=== PATIENT | female | born 1990 | race Caucasian/White ===

== ENCOUNTER 2017-10-14 15:00 | Outpatient (CLI) | payer OTHER ==
[2017-10-14 17:54] LABS: BASOPHILS % (AUTO) 0.7 %; EOSINOPHILS # (AUTO) 0.1 10^3/uL (0.0-0.7); EOSINOPHILS % (AUTO) 1.5 %; HGB - HEMOGLOBIN 12.5 g/dL (12.0-16.0); LYMPHOCYTES # (AUTO) 1.4 10^3/uL (1.5-3.5); LYMPHOCYTES % (AUTO) 25.3 %; MEAN CORPUSCULAR HEMOGLOBIN 30.6 pg (27.0-31.0); MEAN CORPUSCULAR HGB CONC 34.4 g/dL (32.0-36.0); MEAN PLATELET VOLUME 7.3 fL (7.9-10.8); MONOCYTES # (AUTO) 0.3 10^3/uL (0.0-1.0); MONOCYTES % (AUTO) 5.9 %; NEUTROPHILS # (AUTO) 3.6 10^3/uL (1.5-6.6); NEUTROPHILS % (AUTO) 66.6 %; PLT - PLATELET COUNT 213 10^3/uL (130-450); RED BLOOD COUNT 4.06 10^6/uL (4.20-5.40); RED CELL DISTRIBUTION WIDTH 12.5 % (12.0-15.0); WHITE BLOOD COUNT 5.4 x10^3/uL (4.8-10.8)
[2017-10-14 18:50] LABS: ALBUMIN 4.7 g/dL (3.2-5.5); ALBUMIN/GLOBULIN RATIO 1.5 (1.0-2.2); BILIRUBIN,TOTAL 1.6 mg/dL (0.2-1.0); CALCIUM 8.8 mg/dL (8.5-10.3); CREATININE 0.7 mg/dL (0.4-1.0); TOTAL PROTEIN 7.8 g/dL (6.7-8.2)
== END 2017-10-14 15:01 | disposition home or self-care (01) ==
LOC: LAB.S 15:00
PROVIDERS: ATTEND Nurse Practitioner Family
DX: R63.6 Underweight (principal)
CPT/HCPCS: 36415; 80053; 84443; 85025

== ENCOUNTER 2021-05-31 08:00 | Outpatient (CLI) | payer OTHER | END 2021-05-31 08:01 | disposition home or self-care (01) | LOC: LAB 08:00 | PROVIDERS: ATTEND Nurse Practitioner | DX: R10.9 Unspecified abdominal pain (principal) | CPT/HCPCS: 87086; 87181 ==

== ENCOUNTER 2021-06-21 08:01 | Outpatient (CLI) | payer OTHER ==
[2021-06-21 08:34] LABS: BASOPHILS % (AUTO) 0.6 %; EOSINOPHILS # (AUTO) 0.1 10^3/uL (0.0-0.7); EOSINOPHILS % (AUTO) 2.9 %; HGB - HEMOGLOBIN 12.9 g/dL (12.0-16.0); LYMPHOCYTES # (AUTO) 1.2 10^3/uL (1.5-3.5); LYMPHOCYTES % (AUTO) 33.2 %; MEAN CORPUSCULAR HEMOGLOBIN 30.7 pg (27.0-31.0); MEAN CORPUSCULAR HGB CONC 33.9 g/dL (32.0-36.0); MEAN CORPUSCULAR VOLUME 90.5 fL (81.0-99.0); MEAN PLATELET VOLUME 8.7 fL (7.9-10.8); MONOCYTES # (AUTO) 0.3 10^3/uL (0.0-1.0); MONOCYTES % (AUTO) 9.5 %; NEUTROPHILS # (AUTO) 1.9 10^3/uL (1.5-6.6); NEUTROPHILS % (AUTO) 53.2 %; PLT - PLATELET COUNT 160 10^3/uL (130-450); RED CELL DISTRIBUTION WIDTH 11.4 % (12.0-15.0); WHITE BLOOD COUNT 3.5 x10^3/uL (4.8-10.8)
[2021-06-21 08:40] LABS: BILIRUBIN,URINE NEGATIVE (NEGATIVE); GLUCOSE, URINE (UA) NEGATIVE (NEGATIVE); KETONES,URINE (UA) NEGATIVE (NEGATIVE); LEUKOCYTE ESTERASE, URINE TRACE (NEGATIVE); NITRITE,URINE NEGATIVE (NEGATIVE); OCCULT BLOOD,URINE NEGATIVE (NEGATIVE); PROTEIN,URINE 30 mg/dL (NEGATIVE); UROBILINOGEN,URINE 0.2 (NORMAL) E.U./dL (NORMAL)
[2021-06-21 08:42] LABS: CLARITY,URINE CLEAR (CLEAR)
[2021-06-21 08:55] LABS: ALBUMIN 4.4 g/dL (3.2-5.5); ALBUMIN/GLOBULIN RATIO 1.5 (1.0-2.2); ALKALINE PHOSPHATASE 32 IU/L (42-121); ALT ALANINE AMINOTRANSFERASE 22 IU/L (10-60); AST ASPARTATE AMINOTRANSFERASE 20 IU/L (10-42); BILIRUBIN,TOTAL 1.5 mg/dL (0.2-1.0); BUN - BLOOD UREA NITROGEN 12 mg/dL (6-20); CALCIUM 9.1 mg/dL (8.5-10.3); CARBON DIOXIDE - CO2 26 mmol/L (21-32); CHLORIDE 104 mmol/L (101-111); CHOL/HDL RATIO 2.7 (<4.4); CHOLESTEROL 154 mg/dL; CREATININE 0.8 mg/dL (0.4-1.0); GFR - MDRD 83 (>89); GLUCOSE 96 mg/dL (70-100); HDL CHOLESTEROL 57 mg/dL; LDL CHOLESTEROL,CALCULATED 86 mg/dL; LDL/HDL RATIO 1.5 (<4.4); SODIUM 138 mmol/L (135-145); TOTAL PROTEIN 7.4 g/dL (6.7-8.2); TRIGLYCERIDES 53 mg/dL; VLDL CHOLESTEROL 11 mg/dL
[2021-06-21 08:56] LABS: THYROID STIMULATING HORMONE 1.46 uIU/mL (0.34-5.60)
[2021-06-21 08:57] LABS: BACTERIA,URINE Few /HPF (None Seen); RBC,URINE 0-5 /HPF (0-5); SQUAMOUS EPITHELIAL CELL,UR MOD Squamous (<= Few)
== END 2021-06-21 08:02 | disposition home or self-care (01) ==
LOC: LAB 08:01
PROVIDERS: ATTEND Nurse Practitioner
DX: R53.83 Other fatigue (principal); R30.0 Dysuria
CPT/HCPCS: 36415; 80053; 80061; 81001; 83721; 84443; 85025; 87086

== ENCOUNTER 2021-07-18 07:05 | Outpatient (CLI) | payer OTHER ==
[2021-07-18 12:31] LABS: ALBUMIN 4.5 g/dL (3.2-5.5); BILIRUBIN,DIRECT 0.2 mg/dL (0.1-0.5); BILIRUBIN,TOTAL 2.1 mg/dL (0.2-1.0); TOTAL PROTEIN 7.1 g/dL (6.7-8.2)
[2021-07-18 12:46] LABS: BASOPHILS % (AUTO) 0.6 %; EOSINOPHILS # (AUTO) 0.1 10^3/uL (0.0-0.7); EOSINOPHILS % (AUTO) 2.5 %; HCT - HEMATOCRIT 35.2 % (37.0-47.0); LYMPHOCYTES # (AUTO) 1.1 10^3/uL (1.5-3.5); LYMPHOCYTES % (AUTO) 24.1 %; MEAN CORPUSCULAR HEMOGLOBIN 31.2 pg (27.0-31.0); MEAN CORPUSCULAR HGB CONC 34.1 g/dL (32.0-36.0); MEAN CORPUSCULAR VOLUME 91.4 fL (81.0-99.0); MEAN PLATELET VOLUME 9.1 fL (7.9-10.8); MONOCYTES # (AUTO) 0.4 10^3/uL (0.0-1.0); MONOCYTES % (AUTO) 8.9 %; NEUTROPHILS % (AUTO) 63.7 %; PLT - PLATELET COUNT 198 10^3/uL (130-450); RED BLOOD COUNT 3.85 10^6/uL (4.20-5.40); RED CELL DISTRIBUTION WIDTH 11.9 % (12.0-15.0); WHITE BLOOD COUNT 4.7 x10^3/uL (4.8-10.8)
[2021-07-19 09:16] LABS: HEPATITIS B CORE AB TOTAL NON-REACTIVE (NON-REACTIVE); HEPATITIS B SURFACE ANTIGEN NON-REACTIVE (NON-REACTIVE); HEPATITIS C ANTIBODY NON-REACTIVE (NON-REACTIVE)
[2021-07-20 21:56] LABS: HCV RNA QNT <1.18 NOT DETECTED Log IU/mL; HCV RNA QUANT RT PCR <15 NOT DETECTED IU/mL
== END 2021-07-18 07:06 | disposition home or self-care (01) ==
LOC: LAB.N 07:05
PROVIDERS: ATTEND Nurse Practitioner
DX: R79.89 Other specified abnormal findings of blood chemistry (principal)
CPT/HCPCS: 36415; 80076; 85025; 86317; 86704; 86709; 86803; 87340; 87522

== ENCOUNTER 2021-08-08 07:00 | Outpatient (CLI) | payer OTHER ==
--- NOTE | 2021-08-08 08:30 | Ultrasound Report ---
PROCEDURE: Abdomen Complete INDICATIONS: ELEVATED LFTS TECHNIQUE: Real-time scanning was performed of the abdominal and retroperitoneal organs, with image documentatio n. COMPARISON: None. FINDINGS: Liver: Increased hepatic parenchymal echogenicity with normal hepatic echotexture and contour. No foc al hepatic mass. Size of the liver. Gallbladder: Normally distended and otherwise unremarkable. Biliary ducts: Intrahepatic bile ducts are non-dilated. Extrahepatic bile duct caliber measures 5 m m. Normal is 6-7 mm or less in diameter, or 10 mm or less post-cholecystectomy. Pancreas: Visualized portions of the pancreas are sonographically normal. Spleen: Mildly enlarged measuring up to 13 cm with volume of approximately 286 mL. Kidneys: Kidneys are normal in size and echotexture. Right kidney measures 12 cm long; left kidney measures 10 cm long. No hydronephrosis or nephrolithiasis. No solid masses. Aorta: Visualized aorta is normal in caliber at less than 3 cm. Iliacs: Proximal common iliac arteries are normal in caliber at less than 2.5 cm. IVC: Intrahepatic inferior vena cava is patent. Miscellaneous: No free abdominal fluid. IMPRESSION: Increased hepatic parenchymal echogenicity, nonspecific but most likely reflecting hepatic uterus Borderline splenomegaly. Reviewed by: Antonino Her MD on 08/08/2021 8:29 AM PDT Approved by: Antonino Her MD on 08/08/2021 8:29 AM PDT Station ID: [id number]
== END 2021-08-08 07:01 | disposition home or self-care (01) ==
LOC: DI 07:00
PROVIDERS: ATTEND Nurse Practitioner
DX: R79.89 Other specified abnormal findings of blood chemistry (principal); R93.2 Abnormal findings on diagnostic imaging of liver and biliary tract; R16.1 Splenomegaly, not elsewhere classified

== ENCOUNTER 2022-11-01 07:20 | Outpatient (CLI) | payer OTHER ==
[2022-11-01 11:52] LABS: BASOPHILS % (AUTO) 0.5 %; EOSINOPHILS # (AUTO) 0.1 10^3/uL (0.0-0.7); EOSINOPHILS % (AUTO) 2.7 %; HCT - HEMATOCRIT 37.8 % (37.0-47.0); HGB - HEMOGLOBIN 12.5 g/dL (12.0-16.0); LYMPHOCYTES % (AUTO) 23.7 %; MEAN CORPUSCULAR HEMOGLOBIN 30.3 pg (27.0-31.0); MEAN CORPUSCULAR HGB CONC 33.1 g/dL (32.0-36.0); MEAN CORPUSCULAR VOLUME 91.7 fL (81.0-99.0); MEAN PLATELET VOLUME 9.5 fL (7.9-10.8); MONOCYTES # (AUTO) 0.4 10^3/uL (0.0-1.0); MONOCYTES % (AUTO) 9.8 %; NEUTROPHILS # (AUTO) 2.6 10^3/uL (1.5-6.6); NEUTROPHILS % (AUTO) 63.1 %; PLT - PLATELET COUNT 204 10^3/uL (130-450); RED BLOOD COUNT 4.12 10^6/uL (4.20-5.40); RED CELL DISTRIBUTION WIDTH 11.7 % (12.0-15.0); WHITE BLOOD COUNT 4.1 x10^3/uL (4.8-10.8)
[2022-11-01 12:27] LABS: THYROID STIMULATING HORMONE 1.74 uIU/mL (0.34-5.60)
[2022-11-01 12:51] LABS: ALBUMIN 4.3 g/dL (3.2-5.5); ALBUMIN/GLOBULIN RATIO 1.4 (1.0-2.2); ALKALINE PHOSPHATASE 40 IU/L (42-121); ALT ALANINE AMINOTRANSFERASE 14 IU/L (10-60); AST ASPARTATE AMINOTRANSFERASE 15 IU/L (10-42); BILIRUBIN,TOTAL 1.3 mg/dL (0.2-1.0); BUN - BLOOD UREA NITROGEN 13 mg/dL (6-20); CALCIUM 8.8 mg/dL (8.5-10.3); CARBON DIOXIDE - CO2 26 mmol/L (21-32); CHLORIDE 106 mmol/L (101-111); CHOL/HDL RATIO 2.5 (<4.4); CHOLESTEROL 159 mg/dL; CREATININE 0.9 mg/dL (0.4-1.0); GFR - MDRD 72 (>89); GLUCOSE 98 mg/dL (70-100); HDL CHOLESTEROL 64 mg/dL; LDL CHOLESTEROL,CALCULATED 83 mg/dL; LDL/HDL RATIO 1.3 (<4.4); SODIUM 136 mmol/L (135-145); TOTAL PROTEIN 7.4 g/dL (6.7-8.2); TRIGLYCERIDES 62 mg/dL; VLDL CHOLESTEROL 12 mg/dL
== END 2022-11-01 07:21 | disposition home or self-care (01) ==
LOC: LAB.N 07:20
PROVIDERS: ATTEND Nurse Practitioner
DX: R53.83 Other fatigue (principal); Z13.220 Encounter for screening for lipoid disorders
CPT/HCPCS: 36415; 80053; 80061; 83721; 84443; 85025

== ENCOUNTER 2023-02-18 06:26 | Day surgery (SDC) | payer OTHER ==
[~2023-02-18 06:26] MED LIST: ACETAMINOPHEN 500 MG TABLET PO ONE; CELECOXIB 100 MG CAPSULE PO ONE; LORazepam 0.5 MG TABLET ONE; ceFAZolin 2 GM VIAL ONE
[2023-02-18] MEDS ORDERED: LACTATED RINGERS 1,000 ML IV ONE (06:28)
[2023-02-18 06:41] LABS: HCG UR QUAL NEGATIVE
--- NOTE | 2023-02-18 07:10 | ANESTHESIA ---
Pre-Anesthesia VS, & Labs - Diagnosis right breast mass x2 - Procedure excisional biopsy right breast x2 Vital Signs: Temp Pulse Resp BP Pulse Ox O2 Flow Rate 36 C L 88 16 108/77 98 02/18/23 06:35 02/18/23 06:35 02/18/23 06:35 02/18/23 06:35 02/18/23 06:35 Height: 5 ft 9 in Weight (kg): 72 kg Body Mass Index: 23.4 BMI Classification: Normal - NPO >8 hours - Is Patient ?: No Home Medications and Allergies Home Medications: Ambulatory Orders No Known Home Medications 02/12/23 No Known Home Medications 02/12/23 Allergies/Adverse Reactions: Allergies Allergy/AdvReac Type Severity Reaction Status Date / Time Sulfa (Sulfonamide Allergy Anaphylaxis Verified 02/12/23 11:01 Antibiotics) Anes History & Medical History - Anesthetic History Anesthesia Complications: reports: No previous complications - Medical History Cardiovascular: reports: None Pulmonary: reports: None Gastrointestinal: reports: None Urinary: reports: None Musculoskeletal: reports: None Endocrine/Autoimmune: reports: None Skin: reports: None Smoking Status: Never smoker Psychosocial: reports: Alcohol (occasionallt) Exam General: Alert, Oriented x3 Dental: WNL Mouth Opening: Greater than 4 Fingerbreadths Neck Mobility: Normal Mallampati classification: II Thyromental Distance: greater than 6 cm Respiratory: Lungs clear Cardiovascular: Regular rate, Normal S1, Normal S2 Plan Anesthesia Type: General Consent for Procedure(s) Verified and Reviewed: Yes Code Status: Attempt Resuscitation ASA classification: 2-Mild systemic disease Is this case an emergency?: No
[2023-02-18] MEDS ORDERED: NALOXONE 0.4 MG/ML VIAL IVP PRN (07:13)
[2023-02-18] MEDS ORDERED: fentaNYL 100 MCG/2 ML VIAL IVP PRN (07:13)
[2023-02-18] MEDS ORDERED: MORPHINE 2 MG/ML CARPUJECT IVP PRN (07:13)
[2023-02-18] MEDS ORDERED: HYDROmorphone 0.5 MG/0.5 ML SYRINGE IVP PRN (07:13)
[2023-02-18] MEDS ORDERED: ePHEDrine 50 MG/ML VIAL IVP PRN (07:13)
[2023-02-18] MEDS ORDERED: ONDANSETRON 4 MG/2 ML VIAL IVP PRN ×2 (07:13→09:04)
[2023-02-18] MEDS ORDERED: ATROPINE ABBOJECT 1 MG/10 ML SYRINGE IVP PRN (07:13)
[2023-02-18] MEDS ORDERED: METOCLOPRAMIDE 10 MG/2 ML VIAL IVP PRN (07:13)
[2023-02-18] MEDS ORDERED: BUPIVACAINE 0.5% PF 10 ML VIAL ONE (07:17)
[2023-02-18] MEDS ORDERED: LIDOCAINE 1%-EPI 1:100000 20 ML MDV ONE (07:17)
[2023-02-18] MEDS ORDERED: MIDAZOLAM 2 MG/2 ML VIAL ONE (07:30)
[2023-02-18] MEDS ORDERED: BUPIVACAINE 0.5% PF 10 ML VIAL SUBQ ONE ×2 (07:30)
[2023-02-18] MEDS ORDERED: LIDOCAINE 1%-EPI 1:100000 20 ML MDV SUBQ ONE ×2 (07:30)
[2023-02-18] MEDS ORDERED: PROPOFOL 200 MG/20 ML VIAL IVP ONE (07:32)
[2023-02-18] MEDS ORDERED: DEXAMETHASONE 4 MG/ML VIAL ONE (07:52)
[2023-02-18] MEDS ORDERED: LACTATED RINGERS 1,000 ML IV SCH (08:00)
[2023-02-18] MEDS ORDERED: IBUPROFEN 600 MG TABLET PO PRN (09:02)
[2023-02-18] MEDS ORDERED: oxyCODONE 5 MG TABLET PO PRN (09:02)
[2023-02-18] MEDS ORDERED: ACETAMINOPHEN 500 MG TABLET PO PRN (09:02)
[2023-02-18] MEDS ORDERED: LACTATED RINGERS 500 ML IV ONE (09:04)
--- NOTE | 2023-02-18 09:06 | OPERATIVE REPORT ---
Operative Report - General Procedure Date: 02/18/23 Planned Procedure: Excisional biopsy x2, right breast Pre-Op Diagnosis: Fibroadenoma x2 Procedure Performed: Excisional biopsy x2, right breast Post Op Diagnosis: Fibroadenoma x2 - Procedure Note Primary Surgeon: Dr. Meghana Torres Anesthesia Provider: Bobbi Bryant CRNA Anesthesia Technique: General LMA, Local Pathology: right breast mass, x2 both oriented short superior, long lateral, double anterior Indications: The patient has 2 palpable breast masses in her right breast. These have been followed over several years. Both have more than doubled in size since they were first noted on ultrasonography. 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 Due to the increase in size, I recommended excisional biopsy of both lesions. We discussed the risks, benefits, and alternative of surgery including bleeding, infection, damage to surrounding structures, numbness in the area, and upstaging of the pathology requiring further treatment. The patient voiced understanding, her questions were answered, and she wished to proceed. A consent was signed by the patient in clinic. Findings: 1.Right breast mass x2, first mass did not demonstrate a clip on mammography, second mass did demonstrate a clip. Complications: None - Other Other Information/Narrative: The patient was taken to the operating room and placed in the supine position. Preop antibiotics were given. ERAS medications were given. The patient was prepped and draped in the usual sterile fashion. A preop surgical timeout was performed. Attention was turned to the patient's right breast. A periareolar incision was made along the superior aspect of the areola from approximately 9:00 to 3:00. A skin flap was raised superiorly to the incision. The dissection was then carried down through the subcutaneous tissues to the large palpable mass. The mass was grasped with an Allis clamp and the dissection was carried circumferentially around the mass with electrocautery. The biopsy specimen was removed and oriented with suture on the back table. The second palpable mass was palpated through the incision near the superior aspect of the cavity. Blunt and sharp dissection was undertaken until the second mass could be grasped with an Allis clamp. This mass was then isolated from surrounding normal breast tissue and excised using blunt and sharp dissection with electrocautery. Again, the specimen was oriented with suture on the back table. Both specimens were sent to mammography and the biopsy clip was confirmed to be within the second specimen, while the first specimen was not noted to have a clip.The edges of the biopsy cavity were inspected and there were no palpable abnormalities. Hemostasis was confirmed. The lumpectomy cavity was irrigated with warm normal saline. Additional local was placed within the biopsy cavity. The deep dermal tissues were closed with 3-0 Vicryl in an interrupted fashion. The skin was closed with 4-0 Monocryl in a running subcuticular fashion. The patient tolerated the procedure well. There were no complications.
[2023-02-18 09:59] VITALS: BP 120/66; O2SAT 99
--- NOTE | 2023-02-18 10:18 | ANESTHESIA POST OP EVALUATION ---
Anesthesia Post Eval - Post Anesthesia Eval Vitals: Last Vital Signs Temp 36.1 C L 02/18/23 09:49 Pulse 76 02/18/23 09:49 Resp 14 02/18/23 09:49 BP 120/66 02/18/23 09:49 Pulse Ox 99 02/18/23 09:49 O2 Flow Rate CV Function Including HR & BP: Stable Pain Control: Satisfactory Nausea & Vomiting: Negative Mental Status: Baseline Respiratory Status: Airway Patent Hydration Status: Satisfactory Anesthesia Complications: None
--- NOTE | 2023-02-19 16:22 | Mammography Report ---
SPECIMEN: 02/18/2023 CLINICAL: Right Breast Specimen. Correlation is made to exams dated: 11/20/2022 ultrasound, 11/20/2022 mammogram, and 08/04/2021 ultraso und biopsy - [facility]. Right breast lumpectomy specimens x2. Specimen #2 contains a biopsy clip. IMPRESSION: SPECIMEN Right breast lumpectomy specimens, one of which contains a biopsy clip. This exam was interpreted at Station ID: [id number]. Jigar Khan M.D. slc/:02/19/2023 13:59:20 BI-RADS CATEGORY: () - Unspecified - other recall n/a LATERALITY: (B)
== END 2023-02-18 06:27 | disposition home or self-care (01) ==
LOC: SDS 06:26
PROVIDERS: ATTEND Surgery
PROC: 0HBT0ZX Excision of Right Breast, Open Approach, Diagnostic (ICD-10-PCS; principal; 2023-02-18 07:30)
DX: D24.1 Benign neoplasm of right breast (principal); Z80.3 Family history of malignant neoplasm of breast
CPT/HCPCS: 19120; 76098; 81025; A9270; J7120

== ENCOUNTER 2023-11-07 12:22 | Outpatient (CLI) | payer OTHER ==
--- NOTE | 2023-11-08 09:08 | Mammography Report ---
BILATERAL DIGITAL DIAGNOSTIC MAMMOGRAM 3D/2D WITH EXAGGERATED CC SPOT COMPRESSION: 11/07/2023 CLINICAL: Palpable right breast lump. Due for bilateral exam. Comparison is made to exams dated: 11/20/2022 mammogram, 08/04/2021 mammogram, 07/31/2021 mammogram, mammogram, and 11/20/2022 ultrasound - [facility]. Both breasts are extremely dense, which lowers the sensitivity of mammography (category d />75% gland ular tissue). There is a possible asymmetry with an obscured margin in the right breast posterior depth lateral reg ion seen on the craniocaudal view only. No other significant masses, calcifications, or other findings are seen in either breast. IMPRESSION: INCOMPLETE: NEEDS ADDITIONAL IMAGING EVALUATION The possible asymmetry in the right breast is indeterminate. This could correspond to the right breas t palpable abnormality. A targeted ultrasound is recommended and will immediately follow. Based on the Tyrer Cuzick model (a risk assessment model) the patient's lifetime risk is 19.6% and he r 10 year risk is 1.4%. According to the ACR, ACS, and NCCN guidelines, an annual breast MRI exam cheryl ng with mammogram is recommended if the patient's lifetime risk is 20% or greater. This exam was interpreted at Station ID: [id number]. NOTE: For mammograms, a report in lay terms will be sent to the patient. Approximately 15% of breast malignancies will not be visualized mammographically. In the management of a palpable breast mass, a negative mammogram must not discourage biopsy of a clinically suspicious lesion. Electronically Signed By: Jigar Khan M.D. slc/:11/07/2023 13:29:09 ACR BI-RADS Category 0: Incomplete 3340F PARENCHYMAL PATTERN: (VD) - The breast(s) demonstrate(s) extremely dense parenchyma, limiting the sen sitivity of mammography. BI-RADS CATEGORY: (0) - 0 Ultrasound [id number] Immediate follow-up LATERALITY: (B)
--- NOTE | 2023-11-08 09:08 | Ultrasound Report ---
LIMITED ULTRASOUND OF RIGHT BREAST AND AXILLA: 11/07/2023 CLINICAL: Palpable right breast lump. Comparison is made to exams dated: 11/07/2023 mammogram - [facility], 11/20/2022 ult rasound, 11/20/2022 mammogram, 08/04/2021 mammogram, 07/31/2021 ultrasound, and 07/31/2021 mammogram - [facility]. Color flow ultrasound of the right breast 8 o'clock, and axilla regions was performed. Ferguson scale im ages of the real-time examination were reviewed. There is a 1.8 cm x 1.7 cm x 1.4 cm oval mass in the right breast at 8 o'clock posterior depth 7 cm f rom the nipple. This oval mass is hypoechoic. This correlates as palpated and with mammography find ings. Color flow imaging demonstrates that there is an adjacent vascularity. No significant abnormalities were seen sonographically in the right axilla. IMPRESSION: SUSPICIOUS OF MALIGNANCY The 1.8 cm x 1.7 cm x 1.4 cm oval mass in the right breast resembles a fibroadenoma and is at a low s uspicion for malignancy. An ultrasound guided biopsy is recommended. No enlarged right axillary lymph nodes. Exam findings were discussed with the patient. Of note, the patient previously had two right breast m asses surgically excised. This exam was interpreted at Station ID: [id number]. Electronically Signed By: Jigar Khan M.D. [facility]/:11/07/2023 14:05:29 Ultrasound BI-RADS: 4a Low suspicion for malignancy BI-RADS CATEGORY: (4a) - Low Susp Biopsy [id number] Immediate follow-up LATERALITY: (R)
== END 2023-11-07 12:23 | disposition home or self-care (01) ==
LOC: DI 12:22
PROVIDERS: ATTEND Surgery
DX: N63.13 Unspecified lump in the right breast, lower outer quadrant (principal); R92.30 Dense breasts, unspecified; Z86.018 Personal history of other benign neoplasm

== ENCOUNTER 2023-11-28 09:34 | Outpatient (CLI) | payer OTHER ==
[~2023-11-28 09:34] MED LIST changes: -ACETAMINOPHEN 500 MG TABLET PO ONE; -CELECOXIB 100 MG CAPSULE PO ONE; +LIDOCAINE 1%-EPI 1:100000 20 ML MDV ONE; +LIDOCAINE-MPF 1% 5 ML VIAL ONE; -LORazepam 0.5 MG TABLET ONE; -ceFAZolin 2 GM VIAL ONE
[2023-11-28] MEDS: LIDOCAINE-MPF 1% 5 ML VIAL TD ONE (13:27)
[2023-11-28] MEDS: LIDOCAINE 1%-EPI 1:100000 20 ML MDV SUBQ ONE (13:28)
--- NOTE | 2023-12-02 09:40 | Mammography Report ---
UNILATERAL RIGHT DIGITAL DIAGNOSTIC MAMMOGRAM 3D/2D - RIGHT BREAST POST-PROCEDURE IMAGING FOR MARKER PLACEMENT: 11/28/2023 CLINICAL: Post biopsy mammogram. Comparison is made to exams dated: 11/07/2023 mammogram - [facility], 11/20/2022 yamilka mogram, 08/04/2021 mammogram, 07/31/2021 mammogram, and 02/15/2020 mammogram - [facility]. The right breast is extremely dense, which lowers the sensitivity of mammography (category d />75% gl andular tissue). Post biopsy mammogram demonstrates biopsy clip in the expected location. IMPRESSION: POST PROCEDURE MAMMOGRAM FOR MARKER PLACEMENT Post biopsy mammogram demonstrates biopsy clip centered in the expectation location. Please see separ ately dictated ultrasound guided biopsy report for additional details and pathology. Based on the Tyrer Cuzick model (a risk assessment model) the patient's lifetime risk is 19.6% and he r 10 year risk is 1.6%. According to the ACR, ACS, and NCCN guidelines, an annual breast MRI exam cheryl ng with mammogram is recommended if the patient's lifetime risk is 20% or greater. This exam was interpreted at Station ID: [id number]. NOTE: For mammograms, a report in lay terms will be sent to the patient. Approximately 15% of breast malignancies will not be visualized mammographically. In the management of a palpable breast mass, a negative mammogram must not discourage biopsy of a clinically suspicious lesion. Electronically Signed By: Lety Mariee M.D., Ph.D. eb/:11/30/2023 00:34:06 ACR BI-RADS Category Post-procedure mammogram for marker placement PARENCHYMAL PATTERN: (VD) - The breast(s) demonstrate(s) extremely dense parenchyma, limiting the sen sitivity of mammography. BI-RADS CATEGORY: () - Unspecified - other recall n/a LATERALITY: (B)
--- NOTE | 2023-12-03 12:26 | Ultrasound Report ---
ULTRASOUND GUIDED BIOPSY RIGHT BREAST USING VACUUM DEVICE WITH MARKING DEVICE INSERTED AND POST MAMMO GRAPHIC IMAGIN11/28/2023 CLINICAL: Right breast mass. PATIENT CONSENT: Risks (minor bleeding, infection, vasovagal reaction and repeat procedure), benefits and alternatives were explained to the patient and written informed consent was obtained. Correlation is made to exams dated: 11/07/2023 ultrasound, 11/07/2023 mammogram - [facility], 11/20/2022 mammogram, 11/20/2022 ultrasound, 08/04/2021 mammogram, and 07/31/2021 ultrasound - [facility]. An ultrasound guided biopsy using real-time ultrasound was performed for the mass located in the righ t breast at 8 o'clock, 7 cm from the nipple. The skin was prepped in the usual manner. Local anesth etic was administered to the access site. The abnormality was approached from the lateral aspect. A 12 gauge biopsy needle was placed adjacent to the abnormality under ultrasound guidance. Once the n eedle was documented to be in the correct location, five specimens were obtained using the Mammotome biopsy system. The patient received additional local anesthetic during the procedure. A clip was in serted into the biopsy cavity. A sterile dressing was applied to the access site. Post procedure ma mmographic imaging demonstrates the location device at the targeted area. The specimens were sent to the laboratory for pathological analysis. Biopsy was performed by Dr. Suarez. IMPRESSION: ULTRASOUND GUIDED BIOPSY BENIGN Successful ultrasound guided biopsy of the right breast mass 8 o'clock, 7 cm from the nipple performe d by Dr. Suarez. Pathology indicates "benign fibroepithelial lesion, consistent with fibroadenoma or benign phyllodes tumor. Negative for atypical duct hyperplasia, in situ, or invasive carcinoma." Pathology results are concordant with imaging findings. Return to annual mammogram screening schedule is recommended. This exam was interpreted at Station ID: [id number]. Lety Mariee M.D., Ph.D. Benjamin Loza M.D. kush,ar/:12/02/2023 09:30:16 BI-RADS CATEGORY: () - RECOMMENDATION: (ANNUAL) - Recommend routine annual screening mammography. [id number] return to screening LATERALITY: (B)
== END 2023-11-28 09:35 | disposition home or self-care (01) ==
LOC: DI 09:34
PROVIDERS: ATTEND Surgery
DX: N63.13 Unspecified lump in the right breast, lower outer quadrant (principal); R92.341 Mammographic extreme density, right breast
CPT/HCPCS: 19083

== ENCOUNTER 2024-10-13 07:58 | Inpatient (IN) ==
[2024-10-13] MEDS ORDERED: METOCLOPRAMIDE 10 MG/2 ML VIAL IVP PRN ×2 (08:07→18:33)
[2024-10-13] MEDS ORDERED: LABETALOL 20 MG/4 ML SYRINGE IVP PRN ×3 (08:07)
[2024-10-13] MEDS ORDERED: ONDANSETRON 4 MG/2 ML VIAL IVP PRN ×2 (08:07→18:33)
[2024-10-13] MEDS ORDERED: NIFEdipine 10 MG CAPSULE PO PRN (08:07)
[2024-10-13] MEDS ORDERED: hydrALAZINE INJ 20 MG/ML VIAL IVP PRN ×2 (08:07)
[2024-10-13] MEDS ORDERED: miSOPROStoL 200 MCG TABLET BC PRN (08:07)
[2024-10-13] MEDS ORDERED: CARBOPROST TROMETHAMINE 250 MCG/ML VIAL IM PRN (08:07)
[2024-10-13] MEDS ORDERED: SODIUM CHLORIDE FLUSH 0.9% 10 ML SYRINGE IVP PRN (08:07)
[2024-10-13] MEDS ORDERED: TRANEXAMIC ACID IN NACL 1,000 MG/100 ML BAG IV PRN (08:07)
[2024-10-13] MEDS ORDERED: LACTATED RINGERS 1,000 ML IV PRN (08:07)
[2024-10-13] MEDS ORDERED: lidocaine 1% 20 ML MDV ID PRN (08:07)
[2024-10-13] MEDS ORDERED: METHYLERGONOVINE 0.2 MG/ML VIAL IM PRN (08:07)
[2024-10-13] MEDS ORDERED: OXYTOCIN 10 UNIT/ML VIAL IM PRN (08:07)
--- NOTE | 2024-10-13 08:18 | HISTORY & PHYSICAL EXAMINATION ---
Admit History Smoking Status: Former smoker Other Maternal History Other Maternal History: HPI: This 33 yo @ 41 weeks by LMP and confirmed by 6+6 week ultrasound presents to L&D for scheduled medical induction at 41 weeks. Upon arrival her cervix was fingertip and thick, with intact membranes. She was not contacting at admission. HENLEY SCORE:2. Consented for induction of labor. Reviewed inductions methods at length. Reviewed that risks of labor include but are not limited to section, prolonged labor, vacuum extraction, episotomy, hemorrhage, and additional risks exist re: prolonged second stage related to extraction. Reviewed back up OBGYN is available for consultations, emergency interventions and transfer of care if indicted. She has been a patient of [facility] for the duration of her which has remained uncomplicated. She has a history of preeclampsia and has been on LDASA since 12 weeks. ROS: No Headache, visual changes or right upper quadrant abdominal pain. Denies significant N/V. Denies urinary urgency or dysuria. All other symptoms reviewed and were negative except per HPI. In the event of an emergency, accepts the administration of blood products. OB Hx: G1: 02/10/13, IOL @ 36-37 weeks, preEclampsia with severe features, G2: Current Medical Hx: No significant Surgical Hx: None Social Hx: Monogamous with male partner. Denies current use of alcohol or tobacco, marijuana or other recreational drugs. Reports that she is safe in current relationship. Family Hx: Denies family history of congenital anomalies, Cystic Fibrosis or chromosomal abnormalities History of preeclampia with severe features: -LDASA @ 12wks LMP: 12/31/2023 RENEE by LMP: 10/06/2024 US: 02/19/2024 @ 6.6wks c/w LMP dating (RENEE by U/S 10/07/2024) Final RENEE: 10/06/2024 Allergies: Sulfa RX: PMV, iron, Aspirin Pre- Weight: 160 BMI: 25.8 Blood type: COMPLETE WITH 28wk labs Antibody Screen: negative CBC: PLT 190 HCT 36.1 HGB 12.3 RUB: immune VZV: immune HBsAg: neg HepC: NR RPR: NR HIV: NR Flu: next visit Covid: x 3 PAP: 2022 WNL, no hx abnormal GC/CT: neg HSV: denies in self and partner Genetic testing: declines FAS: Placenta: Anterior Cord: 3VC TOBIN: 13.2 EFW: 402.5g 44.6%tile 50gm OGCT: 79 TDAP: 07/21/2024 Breast Pump: 06/09/2024 RSV: NR CBC: PLT 201/HCT 31.8/HGB 10.5 RPR: NR GBS: 09/08/2024 Positive Delivery plan: Epidural, okay all baby meds, plans to breastfeed MOD: Anticipate PP BC: Nexplanon Physical exam: Normocephalic, atraumatic Heart RRR w/o M/G/R Lungs CTAB Abdomen gravid, soft, nontender. EFW 3600 FHR baseline 140, moderate variability, + accelerations, no decelerations Irregular contractions, soft uterine resting tone SVE FT/THICK/Posterior , vertex, membranes intact Bilateral feet and ankles 2+ Mood is good. Assessment: 39yo @ 41 weeks gestation by 6+6 wk U/S Post dates Medical induction of labor FHR 135 Cat I GBS POSITIVE Plan: Admit to [facility] for preinduction cervical ripening followed by inductin Continuous monitoring Jacuzzi PRN. Nitrous oxide PRN. Epidural PRN Maternal Request. Anticipate . Meds/Allgy Home Medications Ambulatory Orders Medication Instructions Recorded Confirmed prenat.vits,jerzy,opz-wtqe-zoeps tab PO 02/18/24 5 blood pressure test kit-medium #1 ea 02/19/24 10/06/24 aspirin 81 mg tablet,delayed 81 mg PO QDAY 03/31/24 release (Adult Low Dose Aspirin) ferrous sulfate 325 mg (65 mg 325 mg PO BID #90 tabs 0 07/18/24 10/06/24 iron) tablet Allergies Allergies Allergy/AdvReac Type Severity Reaction Status Date / Time Sulfa (Sulfonamide Allergy Anaphylaxis Verified 09/29/24 16:27 Antibiotics) PFSH Active Problems All Active Problems (Updated 10/13/24 @ 08:11 by SHANE Forrester) Group B Streptococcus carrier, antepartum (Acute) Elderly multigravida, currently (Acute) History of pre-eclampsia in prior , currently (Acute) Encounter for other specified screening (Acute) Surgical History Surgical History (Updated 02/17/24 @ 15:44 by Mary Meza MA) H/O colposcopy with cervical biopsy 01/06/2021 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
--- OUTSIDE RECORDS SUMMARY | 2024-10-13 08:35 | EXTERNAL MEDICAL SUMMARY RPT | Continuity of Care Document ---
Author Organization [facility] Address [address] [place] [address] Phone Problems date description facility 2024-07-17 07:16 Supervision of elder ly multigravida, unspecified trimester [facility] 2024-07-17 07:16 Encounter for superv ision of normal , unspecified, unspecified trimester [facility] 2024-07-18 00:04 Supervision of elder ly multigravida, unspecified trimester [facility] 2024-07-18 00:04 Encounter for superv ision of normal , unspecified, unspecified trimester [facility] 2024-07-21 09:04 Supervision of elder ly multigravida, unspecified trimester [facility] 2024-07-22 00:02 Encounter for immunization [facility] 2024-09-08 12:04 Encounter for screeni ng for Streptococcus B [facility] 2024-09-08 12:34 Encounter for screeni ng for Streptococcus B [facility] 2024-09-08 15:29 Encounter for screeni ng for Streptococcus B [facility] 2024-09-09 00:04 Encounter for screeni ng for Streptococcus B [facility] 2024-09-21 14:28 Supervision of pregn mesha with other poor reproductive or obstetric history, unspecified trimester [facility] 2024-09-29 08:42 Supervision of pregn mesha with other poor reproductive or obstetric history, unspecified trimester [facility] Results/Labs test date facility value unit notes Result panel 1 HGB - HEMOGLOBIN 2024-07-17 08:40 [facility] 10.5 g /dl (missing) RED CELL DISTRIBUTION WIDTH 2024-07-17 08:40 [facility] 12.6 % (missing) PLT - PLATELET COUNT 2024-07-17 08:40 [facility] 201 10 3/ul (missing) RED BLOOD COUNT 2024-07-17 08:40 [facility] 3.30 10 6/ul (missing) HCT - HEMATOCRIT 2024-07-17 08:40 [facility] 31.8 % (missing) MEAN CORPUSCULAR HEMOGLOBIN 2024-07-17 08:40 [facility] 31.8 pg (missing) MEAN CORPUSCULAR HGB CONC 2024-07-17 08:40 [facility] 33 .0 g/dl (missing) GLUCOSE,1H PP 50GM DOSE 2024-07-17 08:40 [facility] 79 mg/dl Social History date description facility
[2024-10-13] MEDS ORDERED: SODIUM CHLORIDE FLUSH 0.9% 10 ML SYRINGE IVP SCH (09:00)
[2024-10-13 09:31] LABS: BASOPHILS % (AUTO) 0.3 %; EOSINOPHILS # (AUTO) 0.1 10^3/uL (0.0-0.7); EOSINOPHILS % (AUTO) 0.8 %; HCT - HEMATOCRIT 34.1 % (37.0-47.0); HGB - HEMOGLOBIN 11.6 g/dL (12.0-16.0); LYMPHOCYTES # (AUTO) 1.2 10^3/uL (1.5-3.5); LYMPHOCYTES % (AUTO) 12.1 %; MEAN CORPUSCULAR VOLUME 94.2 fL (81.0-99.0); MEAN PLATELET VOLUME 8.4 fL (7.9-10.8); MONOCYTES # (AUTO) 0.7 10^3/uL (0.0-1.0); MONOCYTES % (AUTO) 7.6 %; NEUTROPHILS # (AUTO) 7.7 10^3/uL (1.5-6.6); NEUTROPHILS % (AUTO) 78.8 %; PLT - PLATELET COUNT 167 10^3/uL (130-450); RED BLOOD COUNT 3.62 10^6/uL (4.20-5.40); RED CELL DISTRIBUTION WIDTH 12.3 % (12.0-15.0); WHITE BLOOD COUNT 9.8 x10^3/uL (4.8-10.8)
[2024-10-13 09:44] LABS: ALBUMIN 3.7 g/dL (3.2-5.5); ALBUMIN/GLOBULIN RATIO 1.4 (1.0-2.2); BILIRUBIN,TOTAL 0.9 mg/dL (0.2-1.0); CALCIUM 9.1 mg/dL (8.5-10.3); CREATININE 0.6 mg/dL (0.6-1.3); POTASSIUM 3.9 mmol/L (3.5-4.5); TOTAL PROTEIN 6.3 g/dL (6.4-8.9)
[2024-10-13] MEDS: miSOPROStoL 100 MCG TABLET BC SCH (10:13)
[2024-10-13] MEDS ORDERED: AMPICILLIN 2 GM in SODIUM CHLORIDE 0.9% MINIBAG 100 ML IV ONE (12:00)
--- NOTE | 2024-10-13 14:32 | PHARMACY PROGRESS NOTE ---
Best Possible Medication History Admit Date and Time: 10/13/24 0807 Home Medications Medication Instructions Recorded Confirmed Type prenat.vits,jerzy,tus-gswq-tchys 1 tab PO DAILY 02/18/24 10/13/24 History blood pressure test kit-medium #1 ea 02/19/24 10/06/24 Rx aspirin 81 mg tablet,delayed 81 mg PO DAILY 03/31/24 0 10/13/24 History release (Adult Low Dose Aspirin) ferrous sulfate 325 mg (65 mg 325 mg PO BID #90 tabs 0 07/18/24 10/13/24 Rx iron) tablet Processed by: Pharmacy (Medication reconciliation completed by Braille CoderDanii) Medications reviewed in ED?: No Medication History completed: Yes Patient Interview: Completed Secondary Source(s): Insurance records [facility] Statement: As the person ultimately responsible for medication therapy, providers are able to order a medication from an existing home medication list in [facility] via the "Reconcile Routine" prior to Confirmation of that medication by pc support specialist. Such practice is discouraged except when the physician, in their clinical judgment, deems that a medical need exists for a medication without regard to previous use.
[2024-10-13] MEDS ORDERED: AMPICILLIN 1 GM in SODIUM CHLORIDE 0.9% MINIBAG 100 ML IV SCH (16:00)
[2024-10-13] MEDS: AMPICILLIN 2 GM in SODIUM CHLORIDE 0.9% MINIBAG 100 ML IV ONE (17:43)
[2024-10-13] MEDS: LACTATED RINGERS 1,000 ML IV PRN (17:44)
[2024-10-13] MEDS ORDERED: ROPIVACAINE 0.2% 200 MG/100 ML BAG EP ONE (18:01)
[2024-10-13] MEDS ORDERED: ROPIVACAINE 0.2% 200 MG/100 ML BAG EP PRN (18:33)
[2024-10-13] MEDS ORDERED: NALBUPHINE 10 MG/ML AMP IVP PRN (18:33)
[2024-10-13] MEDS ORDERED: diphenhydrAMINE INJ 50 MG/ML VIAL IVP PRN (18:33)
[2024-10-13] MEDS ORDERED: NALOXONE 0.4 MG/ML VIAL IVP PRN (18:33)
[2024-10-13] MEDS ORDERED: LACTATED RINGERS 500 ML IV ONE (18:33)
[2024-10-13] MEDS ORDERED: ePHEDrine 50 MG/ML VIAL IVP PRN (18:33)
--- NOTE | 2024-10-13 18:36 | ANESTHESIA PROCEDURE NOTE ---
Pre-Anesthesia VS, & Labs Diagnosis Surgical Diagnosis:: term labor Procedure Procedure: epidural for Vitals Vital Signs: Temp Pulse Resp BP Pulse Ox 36.9 C 87 18 119/74 98 10/13/24 14:18 10/13/24 14:18 10/13/24 14:18 10/13/24 14:18 10/13/24 14:18 NPO Last Fluid Intake: t/o day Last Food Intake: lunch Is Patient ?: Yes Lab Results Current Lab Results: Laboratory Tests 10/13/24 10:29: Blood Type Recheck A POSITIVE 10/13/24 09:24: WBC 9.8, RBC 3.62 L, Hgb 11.6 L, Hct 34.1 L, MCV 94.2, MCH 32.0 H, MCHC 34.0, RDW 12.3, Plt Count 167, MPV 8.4, Neut # (Auto) 7.7 H, Lymph # (Auto) 1.2 L, [place] # (Auto) 0.7, Eos # (Auto) 0.1, Baso # (Auto) 0.0, Absolute Nucleated RBC 0.00, Nucleated RBC % 0.0, Sodium 136, Potassium 3.9, Chloride 106, Carbon Dioxide 23, Anion Gap 7.0, BUN 8, Creatinine 0.6, Estimated GFR (MDRD) 114, Glucose 96, Calcium 9.1, Total Bilirubin 0.9, AST 11, ALT 7 L, Alkaline Phosphatase 121, Total Protein 6.3 L, Albumin 3.7, Globulin 2.6, Albumin/Globulin Ratio 1.4 10/13/24 09:20: Blood Type A POSITIVE, Antibody Screen NEGATIVE Lab results reviewed: Yes 10/13/24 09:24 10/13/24 09:24 Meds/Allgy Home Medications Ambulatory Orders Medication Instructions Recorded Confirmed prenat.vits,jerzy,ywo-srxc-bmjos 1 tab PO DAILY 02/18/24 10/13/24 blood pressure test kit-medium #1 ea 02/19/24 10/06/24 aspirin 81 mg tablet,delayed 81 mg PO DAILY 03/31/24 0 10/13/24 release (Adult Low Dose Aspirin) ferrous sulfate 325 mg (65 mg 325 mg PO BID #90 tabs 0 07/18/24 10/13/24 iron) tablet Allergies Allergies Allergy/AdvReac Type Severity Reaction Status Date / Time Sulfa (Sulfonamide Allergy Anaphylaxis Verified 09/29/24 16:27 Antibiotics) PFSH Active Problems All Active Problems (Updated 10/13/24 @ 08:11 by SHANE Forrester) Group B Streptococcus carrier, antepartum (Acute) Elderly multigravida, currently (Acute) History of pre-eclampsia in prior , currently (Acute) Encounter for other specified screening (Acute) Surgical History Surgical History (Updated 02/17/24 @ 15:44 by Mary Meza MA) H/O colposcopy with cervical biopsy 01/06/2021 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 Family History Family History (Updated 02/17/24 @ 16:02 by Mary Meza MA) Mother Anxiety Heart disease Thyroid disease Brother Anxiety Aunt Breast cancer Grandmother Lymphoma Social History Social History (Updated 02/17/24 @ 16:02 by Mary Meza MA) Smoking Status: Never smoker Do you dip or chew tobacco?: No Patient requests smoking cessation consult: No Initiate information on smoking cessation: No POLST POLST Status: Full Code Anesthesia Exam (Expanded) Exam General: Alert, Oriented x3 and Cooperative Dental: WNL Respiratory: Respiratory distress Cardiovascular: Regular rate Mental/Cognitive Status: Alert/Oriented X3 and Normal for patient Exam Exam Vital Signs: Vital Signs x48h Temp Pulse Resp BP Pulse Ox 10/13/24 14:18 36.9 C 87 18 119/74 98 Plan Plan Anesthesia Type: Epidural Consent for Procedure(s) Verified and Reviewed: Yes Code Status: Attempt Resuscitation ASA Classification ASA classification: 2-Mild systemic disease Is this case an emergency?: No
[2024-10-13] MEDS ORDERED: fentaNYL 100 MCG/2 ML VIAL ONE (18:42)
[2024-10-13] MEDS ORDERED: LIDOCAINE 2%-EPI 1:100000 20 ML MDV ONE (19:41)
--- NOTE | 2024-10-13 20:08 | PROVIDER PROGRESS NOTE ---
Labor Progress Note Labor Progress Note Labor Progress Note/Additional Text: S: Starting to feel more comfortable with epidural in place. Her family is supportive at the bedside. O: FHR baseline 140s, moderate variability, + accels, no decels Contractions palpate firm every 2-3 minutes with soft resting tone SVE 6/100/-1 and vertex with intact membranes S/p 1 dose of 50 mcg BC misoprostol s/p 1 dose of Ampicillin for GBS prophylaxis A: 39yo @ 41.0 weeks gestation by 6.6 wk U/S Postdates FHR 135 Cat I GBS POSITIVE P: Maintain epidural for pain management. Continue expectant management. AROM with next dose of ampicillin to ensure adequate GBS prophylaxis. Encourage rotation in bed on peanut ball. Anticipate .
[2024-10-13] MEDS: AMPICILLIN 1 GM in SODIUM CHLORIDE 0.9% MINIBAG 100 ML IV SCH (21:35)
[2024-10-13] MEDS: OXYTOCIN/SODIUM CHLORIDE 500 ML IV PRN (22:20)
[2024-10-13] MEDS ORDERED: HYDROCORTISONE 1% CREAM 28 GM TUBE TOP PRN (23:22)
[2024-10-13] MEDS ORDERED: SIMETHICONE CHEW 80 MG TABLET PO PRN (23:22)
[2024-10-13] MEDS ORDERED: OXYTOCIN/SODIUM CHLORIDE 500 ML IV PRN (23:22)
[2024-10-13] MEDS ORDERED: WITCH HAZEL/GLYCERIN 1 PAD TOP PRN (23:22)
--- NOTE | 2024-10-13 23:28 | DELIVERY NOTE ---
Delivery Note Delivery Comments (Free Text/Narrative) Delivery Comments (Free Text/Narrative): Labor: This 33 year old @ 41.0wks gestation by LMP presented to [facility] for medical induction of labor secondary to postdates . Cervix was fingertip/thick/high and vertex with intact membranes. She received 1 dose of 50mcg BC misoprostol for pre-induction cervical ripening. She progressed to labor spontaneously thereafter. FHR demonstrated Category I pattern throughout labor. Normal labor course. SROM occurred @ 1730 and was noted to be clear fluid. Epidural placed per maternal request. She progressed to c/c/+1 at 2115 with onset of pushing at 2150. She received 2 doses of ampicillin per protocol for adequate GBS prophylaxis. : Normal SVB of viable female on 10/13/2024 @ 2210. Nucal cord x 1 was reduced. The was placed on maternal abdomen, stimulated, dried, and placed skin to skin. 's were 8/9 at 1 and 5 min respectively. Pitocin administered via IV for hemostasis. The umbilical cord was allowed to stop pulsating at which time it was doubly clamped by CNM and cut by FOB. Cord blood was obtained. 3VC. Fundal massage and gentle cord traction applied for active management of the third stage. Placenta delivered spontaneously and intact at 2220. QBL 150mL. Fourth stage: Uterine fundus firm and there is no excessive bleeding. The perineum, vagina, and cervix were inspected and found to have a 1st degree right upper labial laceration which was hemostatic and left unrepaired. Tissues well approximated. initiated. Both mother and baby were left in stable condition.
[2024-10-14] MEDS: IBUPROFEN 800 MG TABLET PO PRN (03:49)
--- NOTE | 2024-10-14 13:41 | PROVIDER PROGRESS NOTE ---
Subjective Subjective Subjective: S: Bonding well with baby. without difficulty. Bleeding decreased and is light. Pain is well controlled with oral medications. She is urinating without difficulty. Has not yet had BM. is supportive at the bedside. O: Heart RRR w/o M/G/R, lungs CTAB, abdomen soft and nontender with fundus firm at U, perineum intact, light lochia rubra, bilateral LE's trace edema A: 33yo -->P2 PPD#1 s/p TSVD viable female infant Normal recovery P: Continue routine care and medications. Evaluate for discharge home tomorrow Current Medications Current Medications Current Medications: Current Medications Generic Name Dose Route Start Last Admin Trade Name Freq PRN Reason Stop Dose Admin Acetaminophen 1,000 mg 10/13/24 23:22 Acetaminophen 500 Mg Tablet PO Q8HR PRN Mild Pain or Fever>38C(100.4F) Docusate Sodium 100 mg 10/14/24 09:00 Docusate Sodium 100 Mg Capsule PO BID KRISTIN Hydralazine HCl 5 - 20 mg 10/13/24 08:07 Hydralazine Inj 20 Mg/Ml Vial IVP Q20M PRN SBP >160 or DBP >110 Protocol Hydralazine HCl 10 mg 10/13/24 08:07 Hydralazine Inj 20 Mg/Ml Vial IVP 10/18/24 08:08 .ONCE PRN Step 9 of Labetalol protocol Protocol Hydrocortisone 1 applic 10/13/24 23:22 Hydrocortisone 1% Cream 28 Gm Tube TOP QID PRN PERINEAL REPAIR Ibuprofen 800 mg 10/13/24 23:22 10/14/24 03:49 Ibuprofen 800 Mg Tablet PO 800 mg Q8HR PRN Administration Moderate Pain (Level 4-6) Labetalol HCl 20 - 80 mg 10/13/24 08:07 Labetalol 20 Mg/4 Ml Syringe IVP Q10M PRN SBP >160 or DBP >110 Protocol Labetalol HCl 20 mg 10/13/24 08:07 Labetalol 20 Mg/4 Ml Syringe IVP 10/18/24 08:08 .ONCE PRN Step 9 of nifedipine protocol Protocol Labetalol HCl 40 mg 10/13/24 08:07 Labetalol 20 Mg/4 Ml Syringe IVP 10/18/24 08:08 .ONCE PRN Step 9 of hydrALAZine protocol Protocol Nifedipine 10 - 20 mg 10/13/24 08:07 Nifedipine 10 Mg Capsule PO Q20M PRN SBP >160 or DBP >110 Protocol Simethicone 80 mg 10/13/24 23:22 Simethicone Chew 80 Mg Tablet PO TID PRN Gas Sodium Chloride 10 ml 10/13/24 08:07 Sodium Chloride Flush 0.9% 10 Ml Syringe IVP PRN PRN NEEDED PER PROVIDER ORDERS Witch Makayla/Glycerin 1 pad 10/13/24 23:22 Witch Makayla/Glycerin 1 Pad TOP PRN PRN PERINEAL REPAIR Objective Vital Signs/Intake & Output Vital Signs: Vital Signs x48h Temp Pulse Resp BP 10/14/24 09:10 98.1 F 88 17 117/53 L Intake & Output: Intake & Output 10/11/24 10/12/24 10/13/24 10/14/24 23:59 23:59 23:59 23:59 Intake Total 1100 / 1100 Output Total 200 / 200 2100 / 2100 Balance -200 / -200 -1000 / -1000 Weight (kg) 185 lb Lab Results 10/13/24 09:24 10/13/24 09:24
[2024-10-14] MEDS: ACETAMINOPHEN 500 MG TABLET PO PRN (13:53)
[2024-10-14] MEDS: DOCUSATE SODIUM 100 MG CAPSULE PO SCH (13:54)
[2024-10-14 20:20] VITALS: O2SAT 98
--- NOTE | 2024-10-15 07:31 | Discharge Summary ---
Discharge Summary HPI History of Present Illness: Date of Admission: 10/13/2024 Date of Discharge: 10/15/2024 Diagnosis on admission: 33 yo at 41+0 weeks gestation Medical induction of labor for postdates Diagnosis on Discharge 33 yo s/p 10/13/2024 following medical IOL Physical exam: Normocephalic, atraumatic Heart RRR w/o M/G/R Lungs CTAB XX Normal uterine involution, FF below umbilicus XXX Small/ scant rubra bleeding XXX perineal discomfort. Bilateral LE's no edema Mood is good. This 33 year old @ 41.0wks gestation by LMP presented to [facility] for medical induction of labor secondary to postdates . Cervix was fingertip/thick/high and vertex with intact membranes. She received 1 dose of 50mcg BC misoprostol for pre-induction cervical ripening. She progressed to labor spontaneously thereafter. FHR demonstrated Category I pattern throughout labor. Normal labor course. SROM occurred @ 1730 and was noted to be clear fluid. Epidural placed per maternal request. She progressed to c/c/+1 at 2115 with onset of pushing at 2150. She received 2 doses of ampicillin per protocol for adequate GBS prophylaxis. : Normal SVB of viable female infant on 10/13/2024 @ 2210. Nucal cord x 1 was reduced. The was placed on maternal abdomen, stimulated, dried, and placed skin to skin. 's were 8/9 at 1 and 5 min respectively. Pitocin administered via IV for hemostasis. The umbilical cord was allowed to stop pulsating at which time it was doubly clamped by CNM and cut by FOB. Cord blood was obtained. 3VC. Fundal massage and gentle cord traction applied for active management of the third stage. Placenta delivered spontaneously and intact at 2220. QBL 150mL. 3694g Fourth stage: Uterine fundus firm and there is no excessive bleeding. The perineum, vagina, and cervix were inspected and found to have a 1st degree right upper labial laceration which was hemostatic and left unrepaired. She has been doing well in her course. She is ambulating and tolerating a regular diet. She is urinating without difficulty and her lochia is normal. Her pain is well controlled without narcotic management. She will be discharged to home today on day X and encouraged IBU, tylenol and stool softeners PRN. She intends to follow up with [facility] in 1 week for telehealth. She has been given precautions to call if she has any new or worsening sx such as fevers, chills, abdominal pain, increasing bleeding, or foul smelling vaginal lochia. preeclamptic precautions reviewed as well. VZV: immune Rubella: immune RH: A+ ALLERGIES Allergies Allergy/AdvReac Type Severity Reaction Status Date / Time Sulfa (Sulfonamide Allergy Anaphylaxis Verified 09/29/24 16:27 Antibiotics) MEDICATIONS Ambulatory Orders Medication Instructions Recorded Confirmed prenat.vits,jerzy,bkm-[id number]-turou 1 tab PO DAILY 02/18/24 10/13/24 blood pressure test kit-medium #1 ea 02/19/24 10/06/24 aspirin 81 mg tablet,delayed 81 mg PO DAILY 03/31/24 0 10/13/24 release (Adult Low Dose Aspirin) ferrous sulfate 325 mg (65 mg 325 mg PO BID #90 tabs 0 07/18/24 10/13/24 iron) tablet PHYSICAL EXAM AT DISCHARGE Vital Signs: Vital Signs x48h Temp Pulse Resp BP 10/15/24 04:47 36.7 C 80 16 114/60 LABS 10/13/24 09:24 10/13/24 09:24 Discharge Plan Discharge Patient Disposition: 01 Home, Self Care Prescriptions: No Action ferrous sulfate 325 mg (65 mg iron) tablet 325 mg PO BID Qty: 90 4RF prenat.vits,jerzy,[id number] Tablet 1 tab PO DAILY (DME) blood pressure test kit-medium Kit See Rx Instructions .Route Qty: 1 0RF Rx Instructions: Use 1 kit as directed twice daily. aspirin [Adult Low Dose Aspirin] 81 mg tablet,delayed release (DR/EC) 81 mg PO DAILY Print Language: Romansh Follow-up Care: Montserrat Gomez ARNP [Primary Care Provider] -
[2024-10-15 13:24] VITALS: BP 124/65; TEMP 98.2
--- NOTE | 2024-10-15 13:27 | Labor Flowsheet ---
Labor Flowsheet Datetime Report Generated by CPN: 10/15/2024 13:27 Datetime: 10/15/2024 09:04 VITAL SIGNS NBP Sys/Bharti/Mean (mmHg): 124 : 65 : 78 Pulse: 81 Datetime: 10/13/2024 23:00 Temperature (C): 36.7 Datetime: 10/13/2024 22:42 Respirations: 18 Datetime: 10/13/2024 22:20 Stage of : Recovery Datetime: 10/13/2024 22:09 FHR Baseline Rate : 128 Communication Comments: Datetime: 10/13/2024 22:00 UTERINE ACTIVITY Monitor Mode: External Frequency (min): 1.5 Quality: Strong Duration (sec): 60+ Pattern: Normal: <= 5 Contractions in 10 Minutes Resting Tone (Palpate): Relaxed ASSESSMENT A Monitor Mode: External US FHR Baseline Changes: No Baseline Change Variability: Moderate 6-25 bpm Accelerations: 15X15 PAIN Pain Scale: 4 LaborFlag: Labor Datetime: 10/13/2024 21:51 STAGE 2 Pushing: Coached on Pushing; Urge to Push COMMUNICATION Communication: Provider at Bedside Datetime: 10/13/2024 21:45 SpO2 (%): 100 Datetime: 10/13/2024 21:36 MEDICATIONS Pitocin (milliunits): Started @ Antibiotics: Ampicillin IV 1 Gm Datetime: 10/13/2024 21:25 Decelerations: Early Datetime: 10/13/2024 21:16 VAGINAL EXAM Dilatation (cm): 10.0 Datetime: 10/13/2024 20:58 Category: Category I Datetime: 10/13/2024 20:56 Pain Presence: None/Denies Station: -2 Exam by: mk Datetime: 10/13/2024 20:36 Effacement (%): 100 Vaginal Bleeding: Normal Show Cervix, Consistency: Soft Cervix, Position: Anterior Datetime: 10/13/2024 19:56 Patient Position/Activity: Semi-Fowlers Anesthesia Level Check: T7 Anesthesia Comments: t 7 on left no epidural effect on r Datetime: 10/13/2024 19:43 Epidural Procedure Other: Redose Datetime: 10/13/2024 19:41 Strip Reviewed by: mk Datetime: 10/13/2024 19:24 Monitor Interventions for UA: [place] Adjusted Monitor Interventions for FHR: Ultrasound Adjusted Datetime: 10/13/2024 19:19 Pain Location: Abdomen Pain Assessment Comments: no epidural relief on r side, anesthesia to return to room Datetime: 10/13/2024 19:00 Contraction Comments: positional due to epidural placement. Datetime: 10/13/2024 18:37 Notification Reason: Labor Status Datetime: 10/13/2024 18:30 PATIENT CARE Oxygen Method: Room Air Datetime: 10/13/2024 18:23 ANESTHESIA Anesthesia Plans: Epidural Epidural Procedure: Completed Datetime: 10/13/2024 18:17 Epidural Positioning: Sitting Datetime: 10/13/2024 18:06 PROCEDURE TIME OUT Procedure Verify: Correct Patient Identity; Correct Side and Site are Marked; Accurate Procedure Consent Form; Agreement on Procedure to be Done; Correct Patient Position; Addressed Need to Administer Antibiotics or Fluids for Irrigation; Safety Precautions Based on Patient History or Medication Use Datetime: 10/13/2024 17:33 Pain Type: Contraction Pain Goal: 5 Datetime: 10/13/2024 09:45 Vaginal Exam Comments: Patient consent obtained prior to SVE.
== END 2024-10-15 11:30 | disposition home or self-care (01) | DRG 807 ==
LOC: WFO 07:58 → FBP 08:01
PROVIDERS: ADMIT Nurse Practitioner; ATTEND Nurse Practitioner
DX: O70.0 First degree perineal laceration during delivery; Z37.0 Single live birth; O99.824 Streptococcus B carrier state complicating childbirth; Z3A.41 41 weeks gestation of pregnancy; O48.0 Post-term pregnancy; O69.81X0 Labor and delivery complicated by cord around neck, without compression, not applicable or unspecified